=== PATIENT | female | born 1960 | race Caucasian/White ===

== ENCOUNTER 2018-11-01 11:37 | Emergency (ER) | payer OTHER ==
--- NOTE | 2018-11-01 13:54 | ED ---
Back Pain - HPI Summary HPI Summary: Patient presents with recurrent back injury with radicular symptoms into Rt LE 2 weeks. She reports she initially injured her back 2 ago while taking out a heavy recycling bin - pulled this with her back. She did not have any acute pain but later that evening she felt pain in her right lower back that radiated into her buttock, behind her leg and around into her foot along w / decreased sensation in her Rt anterior angel. This lasted for about 2-3 daysbut resolved w/ rest, heat and took ibuprofen 200 mg per dose. She reports she reinjured the same area this past (5 days ago) while twisting and lifting. Same sx and actually a little less painful this time. Has been implementing same remedies w/o resolution so was concerned. Also admits she had pain last night making it difficult to sleep. No previous back issues or injuries. She denies previous abdominal surgeries. She does admit to a history of breast cancer 15 years ago which was treated and resolved. She is concerned that this could be contributing to her issues today. Also admits her within the past year and has had change in her insurance. She still has coverage but would like guidance pertaining to medications moving forward. - History of Current Complaint Chief Complaint: EDBackInjuryPain Stated Complaint: PAIN IN BACK, NUMBNESS IN RIGHT LEG Time Seen by Provider: 11/01/18 12:44 Hx Obtained From: Patient Pain Intensity: 6 - Allergies/Home Medications Allergies/Adverse Reactions: Allergies Allergy/AdvReac Type Severity Reaction Status Date / Time No Known Allergies Allergy Verified 03/19/16 08:09 PMH/Surg Hx/FS Hx/Imm Hx Previously Healthy: Yes Endocrine/Hematology History: Denies: Hx Diabetes, Hx Thyroid Disease Cardiovascular History: Reports: Hx Hypertension - controlled on 2 meds Respiratory History: Denies: Hx Asthma, Hx Chronic Obstructive Pulmonary Disease (COPD) GI History: Denies: Hx Ulcer Musculoskeletal History: Reports: Hx Osteoporosis, Hx of Fracture(s) - Rt proximal fibula w/ surgical repair Denies: Hx Back Problems - Cancer History Cancer Type, Location and Year: Breast Cancer in 2002 - in remission Hx Chemotherapy: Yes - BREAST Hx Radiation Therapy: Yes - BREAST - Surgical History Surgery Procedure, Year, and Place: BREAST CANCER Infectious Disease History: No Infectious Disease History: Denies: Hx Hepatitis, Hx Human Immunodeficiency Virus (HIV), Traveled Outside the [place] in Last 30 Days - Social History Alcohol Use: Rare Alcohol Amount: 1 Substance Use Type: Reports: None Smoking Status (MU): Never Smoked Tobacco Have You Smoked in the Last Year: No Review of Systems Constitutional: Other - negative night sweats/weight loss Positive: Chills. Negative: Fever, Fatigue Negative: Chest Pain Negative: Shortness Of Breath Negative: Vomiting, Nausea Genitourinary: Negative Negative: incontinence Positive: Arthralgia, Myalgia Skin: Negative Positive: Paresthesia. Negative: Headache, Weakness, Numbness, Syncope, Slurred Speech Psychological: Normal All Other Systems Reviewed And Are Negative: Yes Physical Exam Triage Information Reviewed: Yes Vital Signs On Initial Exam: Initial Vitals Temp Pulse Resp BP Pulse Ox 97.8 F 91 18 150/82 98 11/01/18 11:51 11/01/18 11:51 11/01/18 11:51 11/01/18 11:51 11/01/18 11:51 Vital Signs Reviewed: Yes Appearance: Positive: Well-Appearing, No Pain Distress, Well-Nourished Skin: Positive: Warm, Skin Color Reflects Adequate Perfusion, Dry Head/Face: Positive: Normal Head/Face Inspection Eyes: Positive: EOMI ENT: Positive: Hearing grossly normal Respiratory/Lung Sounds: Positive: Breath Sounds Present Cardiovascular: Positive: Pulses are Symmetrical in both Upper and Lower Extremities. Negative: Leg Edema Left, Leg Edema Right Musculoskeletal: Positive: Limited @ - Rt dorsiflexion, Pain @ - feels this internally along lower lumbar spine - not reproducible w/ palpation, Other - cannot palpate pain along lumbar spinous pp, paraspinal mm nor SI joint Neurological: Positive: Alert, Oriented to Person Place, Time, CN Intact II- III. Negative: Sensory/Motor Intact - sensory equal B/L in LE's; Rt dorsiflexion 3/5 compared to Rt 5/5 Psychiatric: Positive: Normal Diagnostics - Vital Signs Vital Signs Temp Pulse Resp BP Pulse Ox 11/01/18 11:51 97.8 F 91 18 150/82 98 - Laboratory Lab Statement: Any lab studies that have been ordered have been reviewed, and results considered in the medical decision making process. Back Pain Course/Dx - Course Course Of Treatment: Discussed case w/ Dr. Khan - since patient has some strength w/ dorsiflexion and has had sx for 4 days now, will trial PO meds and have pt have close f/u for MRI. Neurosurgery was not consulted today however pt given f/u care instructions and advised on danger s/sx of when to return to ED. She agrees w/ plan. XR: arthritis, no fx, no dislocation - Diagnoses Provider Diagnoses: Lumbar radiculopathy, right Discharge - Sign-Out/Discharge Documenting (check all that apply): Patient Departure - Discharge Plan Condition: Stable Disposition: HOME Prescriptions: Ibuprofen TAB* [Motrin TAB* 600 MG] 600 mg PO Q6H PRN #20 tab PRN Reason: Pain predniSONE TAB* [Deltasone 20 MG TAB*] 60 mg PO DAILY #15 tab Patient Education Materials: Foot Drop (ED), Lumbar Radiculopathy (ED), Degenerative Disc Disease (ED) Referrals: Myah Lemos MD [Primary Care Provider] - [facility] [Outside] Additional Instructions: Rest, heat in the morning with gentle stretches alternating with ice Take medications as directed *Ibuprofen (ie. 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 If unable to get an appointment, you may follow-up with [facility], in the hospital on the 3rd floor. Call Thursday morning for an appointment. If MRI shows results requiring surgical intervention, a neurosurgery referral may be made. *If worse in the meantime, return to ED - Billing Disposition and Condition Condition: STABLE Disposition: Home
[2018-11-01] MEDS ORDERED: predniSONE TAB* 20 MG PO ONE (13:58)
[2018-11-01] MEDS ORDERED: Ibuprofen TAB* 800 MG PO ONE (13:58)
[2018-11-01] MEDS ORDERED: Omeprazole CAP* 20 MG PO ONE (13:59)
[2018-11-01 15:31] VITALS: BP 158/75
== END 2018-11-01 15:29 | disposition home or self-care (01) ==
LOC: ED 11:37
DX: M54.16 Radiculopathy, lumbar region (principal); M16.11 Unilateral primary osteoarthritis, right hip; I10 Essential (primary) hypertension; Z85.3 Personal history of malignant neoplasm of breast
CPT/HCPCS: 72100; 99282; A9270-GY; J7512

== ENCOUNTER 2019-05-03 19:49 | Emergency (ER) | payer OTHER ==
--- OUTSIDE RECORDS SUMMARY | 2019-05-03 19:55 | XMS REPORT | Continuity of Care Document ---
:1960 External Reference #:[id number] Author Name Myah Lemos MD Address [address] [place] [address] Care Team Providers Name Role Phone Myah Lemos MD FACP Primary Care Physician Unavailable Payers Date Identification Numbers Payment Provider Subscriber Expires: Policy Number: [id number] Edilberto Ross Douglas Sixto 2017 PayID: [id number] [address] [place] [address] Effective: 2017 Policy Number: CPHL [employer] Calvin Brent Sixto [id number] PayID: [id number] [address] [place] [address] Problems Active Problems Provider Date Aortic valve disorder Myah Lemos MD Onset: 09/06/2015 Non-neoplastic nevus Myah Lemos MD Onset: 05/24/2014 Pure hypercholesterolemia Myah Lemos MD Onset: 08/12/2012 Vitamin D deficiency Myah Lemos MD Onset: 08/28/2009 Obesity Myah Lemos MD Onset: 08/01/2009 Impaired fasting glycaemia Myah Lemos MD Onset: 08/01/2009 Essential hypertension Myah Lemos MD Onset: 08/01/2009 Osteoporosis Myha Lemos MD Onset: 04/30/2009 Family History Date Family Member(s) Observation Comments General Migraine Aunts and cousins in [place] : (age 62 Father due to Stroke Years) Onset: (age 61 Father Lung Cancer Years) Father Hypertension Onset: (age 25 Mother Lung Abcess s/p surgery Years) : (age 53 Mother due to Stroke Years) Mother Hypothyroidism Mother Hypertension Mother Heart Disease Not sure of detail Social History Type Date Description Comments Sex Unknown Marital Status 06/2018 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 [place] Tobacco Use Start: Unknown Never Smoked Cigarettes ETOH Use Drinks Alcoholic "Little" Beverages Occasionally Recreational Drug Use Never Used Drugs Tobacco Use Start: Unknown Patient has never smoked Exercise Type/Frequency Does not exercise Allergies, Adverse Reactions, Alerts Description No Known Drug Allergies Medications Active Medications SIG Qnty Indications Ordering Provider Date Losartan Potassium take 1 tablet by 90tabs I10 [place] A 09/06/2015 50mg mouth daily for MD Aminta Tablets high blood pressure Vitamin D3 2 by mouth every E55.9 [place] A 03/07/2015 2000Unit day MD Aminta Capsules M81.0 Amlodipine Besylate take 1 tablet by 90tabs I10 Glasgow A Aminta, 2011 5mg mouth daily for high MD Tablets blood pressure Glucosamine Chondroitin 1PO qd Unknown 09/09/2010 MSM Complex 1500 Tablets History Medications Cephalexin Take 1 tablet 14tabs 461.0 Glasgow A 02/11/2013 - 500mg Tablets by mouth every MD Aminta 02/18/2013 6 hours for infection Calcium Citrate 1 by mouth 733.00 Glasgow A 10/18/2012 - Plus/Magnesium twice a day MD Aminta 05/18/2013 Tablets Losartan 1 by mouth 30tabs 401.9 Glasgow A 06/21/2012 - Potassium/Hydrochlorothiaz every day MD Aminta 08/12/2012 martinez 50-12.5mg Tablets Alendronate Sodium Take 1 Tablet 12tabs 733.00 Glasgow A 05/27/2012 - 70mg Tablets Every Week MD Aminta 06/08/2014 Before A Meal as Directed Losartan 1 by mouth 90tabs 401.9 Glasgow A 02/25/2012 - Potassium/Hydrochlorothiaz every day MD Aminta 06/19/2012 martinez 100-25mg Tablets Azithromycin 2 on first day 6tabs 382.9 Glasgow A 01/01/2012 - 250mg Tablets than 1 daily MD Aminta 01/06/2012 for 4 days Hydrochlorothiazide 1 po qd 30tabs 401.9 Glasgow A 12/08/2011 - 25mg Tablets MD Aminta 02/25/2012 Losartan Potassium 1 po qd 30tabs 401.9 Glasgow A 12/08/2011 - 100mg Tablets MD Aminta 02/25/2012 Losartan 1 by mouth 30tabs 401.9 Glasgow A 05/26/2011 - Potassium/Hydrochlorothiaz every day MD Aminta 12/08/2011 martinez 50-12.5mg Tablets Amlodipine Besylate 1 by mouth 90tabs 401.9 Glasgow A 10/24/2010 - 5mg Tablets every day MD Aminta 06/07/2012 Losartan 1 po qd 90tabs 401.9 Glasgow Bartolo 10/24/2010 - Potassium/Hydrochlorothiaz MD Aminta 05/26/2011 martinez 100-25mg Tablets Vitamin D3 1 po qd 268.9 Glasgow Bartolo 08/28/2009 - 2000Unit Capsules MD Aminta 03/07/2015 733.00 Hyzaar 1 po qd 90tabs 401.9 Glasgoweaston Lemos 08/28/2009 - 100-25mg Tablets 10/24/2010 Lisinopril/Hydrochloro 1 po qd 30tabs 401.9 Glasgoweaston Lemos 08/01/2009 - thiazide 08/28/2009 20-25mg Tablets Actonel 1 po qweek 4tabs 733.00 Myah Lemos 05/14/2009 - 35mg Tablets 06/18/2009 Amoxicillin 1 po tid 30caps 463 Myah Lemos 04/30/2009 - 500mg 08/01/2009 Capsules Vitamin D 1 po qd 268.9 Glasgoweaston Lemos 04/30/2009 - 1000Unit 08/28/2009 Capsules 733.00 Franklin-3-6-9 2 by mouth every day Unknown 11/09/2007 - 08/11/2012 1200mg Capsules Immunizations CPT Code Status Date Vaccine Lot # [id number] Given 08/28/2009 Tdap-Tetanus, Diphtheria Toxoids/Acellular TDAP [id number] Pertussis Vaccine 7+ [id number] Refused 09/10/2016 Influenza Virus Split 3 Yrs And Above For Intramuscular Use 19915 Refused 09/06/2015 Influenza Virus Split 3 Yrs And Above For Intramuscular Use [id number] Refused 07/08/2013 Influenza Virus Split 3 Yrs And Above For Intramuscular Use 92089 Refused 08/12/2012 Influenza Virus Split 3 Yrs And Above For Intramuscular Use 83729 Refused 12/08/2011 Influenza Virus Split 3 Yrs And Above For Intramuscular Use 73160 Refused 10/24/2010 Influenza Virus Split 3 Yrs And Above For Intramuscular Use Vital Signs Date Vital Result Comment 03/24/2019 3:45pm Heart Rate 70 /min BP Systolic 140 mmHg BP Diastolic 80 mmHg Weight 210.00 lb 12/02/2017 1:59pm Heart Rate 76 /min BP Systolic 135 mmHg BP Diastolic 80 mmHg BMI (Body Mass Index) 37.8 kg/m2 Weight 215.00 lb Height 63.25 inches 5'3.25" 09/10/2016 2:09pm O2 % BldC Oximetry 96 % Heart Rate 78 /min BP Systolic 130 mmHg BP Diastolic 75 mmHg BMI (Body Mass Index) 37.6 kg/m2 Weight 214.00 lb Height 63.25 inches 5'3.25" 10/08/2015 2:08pm Heart Rate 80 /min BP Systolic 150 mmHg BP Diastolic 85 mmHg 09/12/2015 6:31pm Ejection Fraction 60-70% ECHO 09/06/2015 2:35pm Heart Rate 76 /min BP Systolic 150 mmHg BP Diastolic 80 mmHg BMI (Body Mass Index) 35.4 kg/m2 Weight 200.00 lb Height 63 inches 5'3" 03/07/2015 3:09pm Heart Rate 70 /min BP Systolic 150 mmHg BP Diastolic 80 mmHg BP Systolic Recheck 140 mmHg BP Diastolic Recheck 80 mmHg Weight 208.00 lb 05/24/2014 1:09pm Body Temperature 98.2 F O2 % BldC Oximetry 96 % Heart Rate 96 /min BP Systolic 160 mmHg BP Diastolic 90 mmHg BP Systolic Recheck 138 mmHg BP Diastolic Recheck 85 mmHg BMI (Body Mass Index) 32.3 kg/m2 Weight 188.00 lb in office, clothed Height 64 inches 5'4" 11/21/2013 2:28pm Body Temperature 98.2 F O2 % BldC Oximetry 99 % Ra, AT Rest Heart Rate 86 /min BP Systolic 132 mmHg BP Diastolic 80 mmHg BMI (Body Mass Index) 33.5 kg/m2 Weight 195.00 lb Height 64 inches 5'4" 07/08/2013 10:42am Body Temperature 98.5 F Heart Rate 70 /min BP Systolic 135 mmHg BP Diastolic 80 mmHg Height 64 inches 5'4" 05/19/2013 1:18pm Heart Rate 80 /min BP Systolic 140 mmHg BP Diastolic 80 mmHg BMI (Body Mass Index) 34.0 kg/m2 Weight 198.00 lb Height 64 inches 5'4" 02/11/2013 12:50pm Body Temperature 98.1 F Heart Rate 76 /min BP Systolic 130 mmHg BP Diastolic 80 mmHg Height 64 inches 5'4" 10/18/2012 2:04pm Heart Rate 72 /min BP Systolic 135 mmHg BP Diastolic 75 mmHg BMI (Body Mass Index) 34.0 kg/m2 Weight 198.00 lb with shoes Height 64 inches 5'4" 09/13/2012 2:25pm Heart Rate 78 /min BP Systolic 138 mmHg BP Diastolic 80 mmHg 08/12/2012 1:16pm Heart Rate 64 /min BP Systolic 140 mmHg BP Diastolic 85 mmHg BMI (Body Mass Index) 33.8 kg/m2 Weight 197.00 lb with shoes Height 64 inches 5'4" 06/21/2012 2:02pm Heart Rate 76 /min BP Systolic 155 mmHg BP Diastolic 90 mmHg BMI (Body Mass Index) 34.2 kg/m2 Weight 199.00 lb Height 64 inches 5'4" 01/01/2012 2:12pm Body Temperature 98.8 F Heart Rate 70 /min BP Systolic 145 mmHg BP Diastolic 85 mmHg 12/08/2011 3:09pm Heart Rate 70 /min BP Systolic 165 mmHg BP Diastolic 85 mmHg BMI (Body Mass Index) 34.3 kg/m2 Weight 200.00 lb Height 64 inches 5'4" 05/26/2011 11:23am Heart Rate 66 /min BP Systolic 138 mmHg BP Diastolic 75 mmHg BMI (Body Mass Index) 33.6 kg/m2 Weight 196.00 lb Height 64 inches 5'4" 01/23/2011 11:07am Heart Rate 74 /min BP Systolic 140 mmHg BP Diastolic 75 mmHg BMI (Body Mass Index) 34.2 kg/m2 Weight 199.00 lb Height 64 inches 5'4" 10/24/2010 11:17am Heart Rate 80 /min BP Systolic 150 mmHg BP Diastolic 85 mmHg BMI (Body Mass Index) 33.3 kg/m2 Weight 194.00 lb Height 64 inches 5'4" 10/17/2010 2:31pm Ejection Fraction 60% ECHO 08/22/2010 1:22pm Heart Rate 72 /min BP Systolic 165 mmHg BP Diastolic 90 mmHg BMI (Body Mass Index) 33.5 kg/m2 Weight 195.00 lb Height 64 inches 5'4" 04/16/2010 1:05pm Heart Rate 74 /min BP Systolic 160 mmHg BP Diastolic 90 mmHg BMI (Body Mass Index) 34.0 kg/m2 Weight 198.00 lb Height 64 inches 5'4" 12/17/2009 2:03pm Heart Rate 64 /min BP Systolic 145 mmHg BP Diastolic 90 mmHg BP Systolic Recheck 148 mmHg BP Diastolic Recheck 90 mmHg BMI (Body Mass Index) 34.7 kg/m2 Weight 202.00 lb Height 64 inches 5'4" 11/05/2009 10:36am Body Temperature 98.4 F Height 64 inches 5'4" 10/22/2009 2:31pm Ejection Fraction 60% ECHO 10/15/2009 1:54pm Heart Rate 72 /min BP Systolic 145 mmHg BP Diastolic 85 mmHg 08/28/2009 11:11am Heart Rate 80 /min BP Systolic 155 mmHg BP Diastolic 85 mmHg BMI (Body Mass Index) 32.8 kg/m2 Weight 191.00 lb Height 64 inches 5'4" 08/01/2009 11:34am Heart Rate 80 /min BP Systolic 175 mmHg BP Diastolic 90 mmHg BMI (Body Mass Index) 33.5 kg/m2 Weight 195.00 lb Height 64 inches 5'4" 04/30/2009 1:03pm Body Temperature 98.7 F Heart Rate 80 /min BP Systolic 170 mmHg BP Diastolic 85 mmHg Height 64 inches 5'4" 04/05/2009 4:07pm Body Temperature 98.0 F O2 % BldC Oximetry 99 % Heart Rate 80 /min BP Systolic 165 mmHg BP Diastolic 90 mmHg BMI (Body Mass Index) 33.5 kg/m2 Weight 195.00 lb Height 64 inches 5'4" Results Test Date Facility Test Result H/L Range Note Laboratory test 02/08/2019 [facility] Cytology SEE RESULT 1 [place] [address] BELOW [phone] Xray 08/24/2018 [facility] Mammography, Normal [address] Screening, [place] [address] Bilateral [phone] CBC No Diff 09/24/2017 [facility] White Blood 8.1 10^3/uL N 3.5-10.8 [place] [address] Count [phone] Red Blood Count 4.72 10^6/uL N 4.0-5.4 Hemoglobin 13.1 g/dL N 12.0-16.0 Hematocrit 39 % N 35-47 Mean Corpuscular Volume 84 fL N 80-97 Mean Corpuscular Hemoglobin 28 pg N 27-31 Mean Corpuscular HGB Conc 33 g/dL N 31-36 Red Cell Distribution Width 13 % N 10.5-15 Platelet Count 272 10^3/uL N 150-450 Mean Platelet Volume 9 um3 N 7.4-10.4 Comp Metabolic Panel 09/24/2017 [facility] Sodium 136 mmol/L N 133-145 [place] [address] [phone] Potassium 3.8 mmol/L N 3.5-5.0 Chloride 101 mmol/L N 101-111 Co2 Carbon Dioxide 27 mmol/L N 22-32 Anion Gap 8 mmol/L N 2-11 Glucose 105 mg/dL High 70-100 Blood Urea Nitrogen 17 mg/dL N 6-24 Creatinine 0.68 mg/dL N 0.51-0.95 BUN/Creatinine Ratio 25.0 High 8-20 Calcium 10.2 mg/dL N 8.6-10.3 Total Protein 7.5 g/dL N 6.4-8.9 Albumin 4.8 g/dL N 3.2-5.2 Globulin 2.7 g/dL N 2-4 Albumin/Globulin Ratio 1.8 N 1-3 Total Bilirubin 0.60 mg/dL N 0.2-1.0 Alkaline Phosphatase 99 U/L N 34-104 Alt 19 U/L N 7-52 Ast 17 U/L N 13-39 Egfr Non- 89.2 >60 Egfr 114.7 >60 2 Lipid Profile 09/24/2017 [facility] Triglycerides 190 mg/dL High <150 3 (Trig/Chol/HDL) [place], [place] [id number] [phone] Cholesterol 232 mg/dL High <200 4 HDL Cholesterol 44.9 mg/dL >40 5 LDL Cholesterol 149 mg/dL High <130 6 Laboratory test 09/24/2017 [facility] Hemoglobin A1c 5.4 % N 4.0-5.6 7 [place] [address] (Glyco HGB) [phone] Vitamin D Total 25(Oh) 31.3 ng/mL N 20-50 8 Xray 05/27/2017 [facility] Mammography, Normal [address] Diagnostic, [place] [address] Bilateral [phone] Urine Microalbumin 11/07/2016 [facility] Urine Creatinine 107.13 mg/[place] [address] [phone] Ur Microalbumin (mg/L) < 15.0 mg/L N Urine Microalbumin/Creatinine TNP ug/mg N <31 9 Lipid Profile 11/06/2016 [facility] Triglycerides 214 mg/dL High <150 10 (Trig/Chol/HDL) [place] [address] [phone] Cholesterol 219 mg/dL High <200 11 HDL Cholesterol 45.3 mg/dL N >40 12 LDL Cholesterol 131 mg/dL High <130 13 Laboratory test 11/06/2016 [facility] Hemoglobin A1c 5.6 % N Less than 14 [place] [address] (Glyco HGB) 6.0 [phone] Comp Metabolic 11/06/2016 [facility] Sodium 136 N 133-145 [place] [address] mmol/L [phone] Potassium 4.4 mmol/L N 3.5-5.0 Chloride 102 mmol/L N 101-111 Co2 Carbon Dioxide 25 mmol/L N 22-32 Anion Gap 9 mmol/L N 2-11 Glucose 103 mg/dL High 70-100 Blood Urea Nitrogen 14 mg/dL N 6-24 Creatinine 0.75 mg/dL N 0.51-0.95 BUN/Creatinine Ratio 18.7 N 8-20 Calcium 9.9 mg/dL N 8.6-10.3 Total Protein 7.7 g/dL N 6.4-8.9 Albumin 4.6 g/dL N 3.2-5.2 Globulin 3.1 g/dL N 2-4 Albumin/Globulin Ratio 1.5 N 1-3 Total Bilirubin 0.50 mg/dL N 0.2-1.0 Alkaline Phosphatase 95 U/L N 34-104 Alt 22 U/L N 7-52 Ast 18 U/L N 13-39 Egfr Non- 79.9 N >60 Egfr 102.8 N >60 15 CBC No Diff 11/06/2016 [facility] White Blood 8.2 10^3/uL N 3.5-10.8 [place] [address] Count [phone] Red Blood Count 5.00 10^6/uL N 4.0-5.4 Hemoglobin 13.9 g/dL N 12.0-16.0 Hematocrit 42 % N 35-47 Mean Corpuscular Volume 84 fL N 80-97 Mean Corpuscular Hemoglobin 28 pg N 27-31 Mean Corpuscular HGB Conc 33 g/dL N 31-36 Red Cell Distribution Width 13 % N 10.5-15 Platelet Count 243 10^3/uL N 150-450 Mean Platelet Volume 9 um3 N 7.4-10.4 Xray 10/14/2016 [facility] Dexa Scan, Axial Osteopenia KARISHMA TOMLINSON (e.g. hips, [place] [address] pelvis, spine) [phone] Laboratory 03/19/2016 [facility] Surgical Pathology SEE RESULT 16, [place] [address] BELOW 17 [phone] Xray 03/19/2016 [facility] Stero/Local/Guid Benign [address] [address] [phone] Xray 03/17/2016 [facility] Mammography, Rtbreast KARISHMA TOMLINSON Screening, [place] [address] Bilateral [phone] Order 09/13/2015 [facility] Echocardiogram Mild LVH PHTN [address], [address] FLO[address] Ef 65% [place] [address] [phone] Urinalysis 08/28/2015 [facility] Urine Color Straw N 18 [place] [address] [phone] Urine Appearance Clear N Urine Specific [place] 1.010 N 1.010-1.030 Urine pH 6.0 N 5-9 Urine Urobilinogen Negative N Negative Urine Ketones Negative N Negative Urine Protein Negative N Negative Urine Leukocytes Negative N Negative Urine Blood Negative N Negative Urine Nitrite Negative N Negative Urine Bilirubin Negative N Negative Urine Glucose Negative N Negative Laboratory 08/28/2015 [facility] Hepatitis C Nonreactive N Nonreactive 19 [place] [address] Antibody [phone] Lipid Profile 08/28/2015 [facility] Triglycerides 152 mg/dL N 20 (Trig/Chol/[place] [address] L) [phone] Cholesterol 214 mg/dL N 21 HDL Cholesterol 47.1 mg/dL N 22 LDL Cholesterol 137 mg/dL N 23 Laboratory test 08/28/2015 [facility] Hemoglobin A1c 5.8 % N Less than 24 [place] [address] (Glyco HGB) 6.0 [phone] Vitamin D Total 25(Oh) 48.6 ng/mL N 30-50 25 Comp Metabolic Panel 08/28/2015 [facility] Sodium 132 mmol/L Low 133-145 [place] [address] [phone] Potassium 4.2 mmol/L N 3.5-5.0 Chloride 99 mmol/L Low 101-111 Co2 Carbon Dioxide 25 mmol/L N 22-32 Anion Gap 8 mmol/L N 2-11 Glucose 98 mg/dL N 70-100 Blood Urea Nitrogen 16 mg/dL N 6-24 Creatinine 0.75 mg/dL N 0.51-0.95 BUN/Creatinine Ratio 21.3 High 8-20 Calcium 9.9 mg/dL N 8.6-10.3 Total Protein 7.4 g/dL N 6.4-8.9 Albumin 4.5 g/dL N 3.2-5.2 Globulin 2.9 g/dL N 2-4 Albumin/Globulin Ratio 1.6 N 1-3 Total Bilirubin 0.40 mg/dL N 0.2-1.0 Alkaline Phosphatase 92 U/L N 34-104 Alt 19 U/L N 7-52 Ast 17 U/L N 13-39 Egfr Non- 80.2 N >60 Egfr 103.2 N >60 26 CBC No Diff 08/28/2015 [facility] White Blood 8.2 10^3/uL N 4.8-10.8 [place] [address] Count [phone] Red Blood Count 4.67 10^6/uL N 4.0-5.4 Hemoglobin 13.3 g/dL N 12.0-16.0 Hematocrit 40 % N 35-47 Mean Corpuscular Volume 85 fL N 80-97 Mean Corpuscular Hemoglobin 28 pg N 27-31 Mean Corpuscular HGB Conc 33 g/dL N 31-36 Red Cell Distribution Width 13 % N 10.5-15 Platelet Count 258 10^3/uL N 150-450 Mean Platelet Volume 9 um3 N 7.4-10.4 Xray 03/12/2015 [facility] Mammography, Normal [address] Screening, Bilateral [place], [place] [address] [phone] Vitamin D, 25 02/20/2015 [facility] 25-Hydroxy Vitamin <4.0 ng/ [place] [address] D2 [phone] 25-Hydroxy Vitamin D3 27 ng/mL N 25-Hydroxy Vitamin D Total 27 ng/mL N 27 Laboratory test 02/20/2015 [facility] Hemoglobin A1c 6.0 % N Less than 28 [place] [address] 6.0 [phone] Basic Metabolic 02/20/2015 [facility] Sodium 134 N 133-145 [place] [address] mmol/L [phone] Potassium 3.9 mmol/L N 3.5-5.0 Chloride 103 mmol/L N 101-111 Co2 Carbon Dioxide 25 mmol/L N 22-32 Anion Gap 6 mmol/L N 2-11 Glucose 97 mg/dL N 70-100 Blood Urea Nitrogen 15 mg/dL N 6-24 Creatinine 0.68 mg/dL N 0.51-0.95 BUN/Creatinine Ratio 22.1 High 8-20 Calcium 9.7 mg/dL N 8.6-10.3 Egfr Non- 90.2 N >60 Egfr 116.0 N >60 29 Laboratory test 05/31/2014 [facility] Surgical RUN DATE: 30 [place] [address] Pathology 06/02/ <SEE [phone] NOTE> Xray 05/30/2014 [facility] Dexa Scan, Axial Improved OP KARISHMA TOMLINSON (e.g. hips, [place] [address] pelvis, spine) [phone] Urine 05/22/2014 [facility] Ur Microalbumin 15.0 mg/dL <30 31 [place] [address] (mg/L) Random [phone] Urine Creatinine 259.05 mg/dL Urine Microalbumin/Creatinine 5.7 Less Than 31 Laboratory test 05/19/2014 [facility] Hemoglobin A1c 5.6 % Less than 32 [place] [address] 6.0 [phone] Lipid Profile 05/19/2014 [facility] Triglycerides 187 mg/dL 33 (Trig/Chol/HDL) [place] [address] [phone] Cholesterol 225 mg/dL 34 HDL Cholesterol 45.8 mg/dL 35 LDL Cholesterol 142 mg/dL 36 Comp Metabolic Panel 05/19/2014 [facility] Sodium 136 mmol/L 133-145 [place] [address] [phone] Potassium 4.2 mmol/L 3.7-5.6 Chloride 103 mmol/L 101-111 Co2 Carbon Dioxide 27 mmol/L 22-32 Anion Gap 6 mmol/L 2-11 Glucose 92 mg/dL 70-100 Blood Urea Nitrogen 15 mg/dL 6-24 Creatinine 0.75 mg/dL 0.51-0.95 BUN/Creatinine Ratio 20.0 8-20 Calcium 9.5 mg/dL 8.6-10.3 Total Protein 7.2 g/dL 6.4-8.9 Albumin 4.6 g/dL 3.2-5.2 Globulin 2.6 g/dL 2-4 Albumin/Globulin Ratio 1.8 1-3 Total Bilirubin 0.40 mg/dL 0.2-1.0 Alkaline Phosphatase 71 U/L 34-104 Alt 17 U/L 7-52 Ast 17 U/L 13-39 Egfr Non- 80.5 >60 Egfr 103.6 >60 37 CBC No Diff 05/19/2014 [facility] White Blood 7.4 10^3/uL 4.8 -10.8 [place] [address] Count [phone] Red Blood Count 4.64 10^6/uL 4.0-5.4 Hemoglobin 13.5 g/dL 12.0-16.0 Hematocrit 39 % 35-47 Mean Corpuscular Volume 84 fL 80-97 Mean Corpuscular Hemoglobin 29 pg 27-31 Mean Corpuscular HGB Conc 35 g/dL 31-36 Red Cell Distribution Width 13 % 10.5-15 Platelet Count 261 10^3/uL 150-450 Mean Platelet Volume 9 um3 7.4-10.4 Xray 12/16/2013 [facility] Mammography, Normal [address] Screening, [place] [address] [phone] Vitamin D, 25 11/14/2013 [facility] 25-Hydroxy Vitamin <4.0 ng/ [place] [address] D2 [phone] 25-Hydroxy Vitamin D3 38 ng/mL 25-Hydroxy Vitamin D Total 38 ng/mL 38 Laboratory test 11/14/2013 [facility] Hemoglobin A1c 5.5 % Less than 39 [place] [address] 6.0 [phone] Basic Metabolic 11/14/2013 [facility] Sodium 136 133-145 [place] [address] mmol/L [phone] Potassium 4.1 mmol/L 3.5-5.0 Chloride 101 mmol/L 101-111 Co2 Carbon Dioxide 26.0 mmol/L 22-32 Anion Gap 9.0 mmol/L 2-11 Glucose 96 mg/dL 70-100 Blood Urea Nitrogen 17 mg/dL 6-24 Creatinine 0.80 mg/dL 0.50-1.40 BUN/Creatinine Ratio 21.3 High 8-20 Calcium 9.8 mg/dL 8.1-9.9 Egfr Non- 75.0 >60 Egfr 96.5 >60 40 Urine Microalbumin 05/18/2013 [facility] Ur Microalbumin 3.0 mg/ L 41 [place] [address] (mg/L) [phone] Urine Creatinine 75.3 mg/dL Urine Microalbumin/Creatinine 4.0 Less Than 31 Vitamin D, 25 05/11/2013 [facility] 25-Hydroxy Vitamin <4.0 ng/ [place] [address] D2 [phone] 25-Hydroxy Vitamin D3 34 ng/mL 25-Hydroxy Vitamin D Total 34 ng/mL 25-80 42 Lipid Profile 05/11/2013 [facility] Triglycerides 128 mg/dL 40-200 (Trig/Chol/HDL) [place] [address] [phone] Cholesterol 222 mg/dL High Less than 200 HDL Cholesterol 48 mg/dL 40-60 43 Cholesterol/HDL Ratio 4.6 Average High 1-4.44 LDL Cholesterol 148.4 Less Than 160 44 Laboratory test 05/11/2013 [facility] Hemoglobin A1c 5.5 % Less than 45 [place] [address] 6.0 [phone] Comp Metabolic 05/11/2013 [facility] Sodium 138 133-145 [place] [address] mmol/L [phone] Potassium 4.0 mmol/L 3.5-5.0 Chloride 104 mmol/L 101-111 Co2 Carbon Dioxide 27.0 mmol/L 22-32 Anion Gap 7.0 mmol/L 2-11 Glucose 93 mg/dL 70-100 Blood Urea Nitrogen 9 mg/dL 6-24 Creatinine 0.60 mg/dL 0.50-1.40 BUN/Creatinine Ratio 15.0 8-20 Calcium 10.0 mg/dL High 8.1-9.9 Total Protein 7.2 g/dL 6.2-8.1 Albumin 4.4 g/dL 3.6-5.4 Globulin 2.8 g/dL 2-4 Albumin/Globulin Ratio 1.6 1-3 Total Bilirubin 0.6 mg/dL 0.4-1.5 Alkaline Phosphatase 79 U/L 30-110 Alt 19 U/L 14-54 Ast 21 U/L 12-42 Egfr Non- 104.6 >60 Egfr 134.5 >60 46 CBC No Diff 05/11/2013 [facility] White Blood 6.7 10^3/uL 4.8 -10.8 [place] [address] Count [phone] Red Blood Count 4.71 10^6/uL 4.0-5.4 Hemoglobin 13.3 g/dL 12.0-16.0 Hematocrit 40 % 35-47 Mean Corpuscular Volume 84 fL 80-97 Mean Corpuscular Hemoglobin 28 pg 27-31 Mean Corpuscular HGB Conc 33 g/dL 31-36 Red Cell Distribution Width 13 % 10.5-15 Platelet Count 254 10^3/uL 150-450 Mean Platelet Volume 9 um3 7.4-10.4 Xray 12/15/2012 [facility] Mammography, Benign [address] Screening, [place] [address] Bilateral [phone] Basic Metabolic 10/13/2012 [facility] Sodium 138 mmol/L 133- 14 [place] [address] 5 [phone] Potassium 4.1 mmol/L 3.5-5.0 Chloride 106 mmol/L 101-111 Co2 Carbon Dioxide 26.0 mmol/L 22-32 Anion Gap 6.0 mmol/L 2-11 Glucose 96 mg/dL 70-100 Blood Urea Nitrogen 12 mg/dL 6-24 Creatinine 0.60 mg/dL 0.50-1.40 BUN/Creatinine Ratio 20.0 8-20 Calcium 9.8 mg/dL 8.1-9.9 Egfr Non- 105.0 >60 Egfr 135.0 >60 47 Laboratory 10/13/2012 [facility] TSH (Thyroid 2.14 0.34-5.60 48 [place] [address] Stimulating Horm) MIU/ML [phone] Lipid Profile 10/13/2012 [facility] Triglycerides 115 mg/dL 40-200 (Trig/Chol/[place] [address] ) [phone] Cholesterol 217 mg/dL High Less than 200 HDL Cholesterol 49 mg/dL 40-60 49 Cholesterol/HDL Ratio 4.4 Average 1-4.44 LDL Cholesterol 145.0 mg/dL High Less Than 130 50 CBC No Diff 07/01/2012 [facility] White Blood Count 6.6 CUMM 4.8-10.8 [place] [address] [phone] Red Cell Count 4.40 CUMM 4.2-5.4 Hemoglobin 12.9 g/dL 12.0-16.0 Hematocrit 38 % 35-47 Mean Corpuscular Volume 85 um3 79-97 Mean Corpuscular Hemoglob 29 pg 27-31 Mean Corpuscular HGB Cone 34 g/dL 32-36 Redcell Distribution WDTH 13 % 10.5-15 Platelet Count 229 CUMM 150-450 Mean Platelet Volume 9.3 um3 7.4-10.4 Basic Metabolic Panel 07/01/2012 [facility] Sodium 136 mmol/L 135-145 [place] [address] [phone] Potassium 3.9 mmol/L 3.5-5.0 Chloride 101 mmol/L 101-111 Co2 (Carbon Dioxide) 27.0 mmol/L 22-32 Anion Gap 8.0 mmol/L 2-11 51 Glucose 98 mg/dL 70-100 BUN 13 mg/dL 6-24 Creatinine 0.8 mg/dL 0.50-1.40 One Over Creatinine 1.25 BUN/Creatinine Ratio 16.3 8-20 Calcium 10.1 mg/dL High 8.1-9.9 eGFR Non- 75.3 > 60 eGFR 96.9 > 60 52 Lipid Profile 07/01/2012 [facility] Triglyceride 159 mg/dL 40 -200 (Trig/Chol/HDL) [place] [address] [phone] Cholesterol 248 mg/dL High Less Than 200 53 High Density Lipoprotein 53 mg/dL 40-60 54 Cholesterol/HDL Ratio 4.68 AVERAGE High 1-4.44 Low Density Lipoprotein 163 mg/dL High Less Than 130 55 Laboratory test 07/01/2012 [facility] Hemoglobin A1c 5.4 % Less Than 56 [place] [address] 6.0 [phone] Order 06/21/2012 [facility] [place] [address] [phone] Xray 12/04/2011 [facility] Mammography, Normal [facility] [address] Screening, [place] [address] Bilateral [phone] CBC No Diff 11/28/2011 [facility] White Blood 6.0 CUMM 4.8- 10.8 [place] [address] Count [phone] Red Cell Count 4.29 CUMM 4.2-5.4 Hemoglobin 12.3 g/dL 12.0-16.0 Hematocrit 36 % 35-47 Mean Corpuscular Volume 83 um3 79-97 Mean Corpuscular Hemoglob 29 pg 27-31 Mean Corpuscular HGB Cone 34 g/dL 32-36 Redcell Distribution WDTH 13 % 10.5-15 Platelet Count 239 CUMM 150-450 Mean Platelet Volume 8.7 um3 7.4-10.4 Basic Metabolic Panel 11/28/2011 [facility] Sodium 136 mmol/L 135-145 [place] [address] [phone] Potassium 3.8 mmol/L 3.5-5.0 Chloride 102 mmol/L 101-111 Co2 (Carbon Dioxide) 25.0 mmol/L 22-32 Anion Gap 9.0 mmol/L 2-11 57 Glucose 102 mg/dL High 70-100 BUN 12 mg/dL 6-24 Creatinine 0.7 mg/dL 0.50-1.40 One Over Creatinine 1.42 BUN/Creatinine Ratio 17.1 8-20 Calcium 9.6 mg/dL 8.1-9.9 eGFR Non- 88.2 > 60 eGFR 113.5 > 60 58 Vitamin D, 25 11/28/2011 [facility] 25-Hydroxy Vitamin <4.0 ng/ mL () [place] [address] D2 [phone] 25-Hydroxy Vitamin D3 34 ng/mL () 25-Hydroxy Vitamin D Total 34 ng/mL () 59 Laboratory test 11/28/2011 [facility] Hemoglobin A1c 5.4 % Less 60 [place] [address] Than 6.0 [phone] Xray 05/20/2011 [facility] Dexa Scan, Osteopenia, [address] [place] ([place] [address] hips, pelvis, [phone] spine) Basic Metabolic 05/20/2011 [facility] Sodium 139 mmol/L 135- 145 [place] [address] [phone] Potassium 3.7 mmol/L 3.5-5.0 Chloride 108 mmol/L 101-111 Co2 (Carbon Dioxide) 25.0 mmol/L 22-32 Anion Gap 6.0 mmol/L 2-11 61 Glucose 92 mg/dL 70-100 BUN 12 mg/dL 6-24 Creatinine 0.60 mg/dL 0.50-1.40 One Over Creatinine 1.60 BUN/Creatinine Ratio 20.0 8-20 Calcium 9.3 mg/dL 8.1-9.9 eGFR Non- 105.4 > 60 eGFR 135.5 > 60 62 Vitamin D, 25 05/20/2011 [facility] 25-Hydroxy Vitamin <4.0 ng/ mL () [place] [address] D2 [phone] 25-Hydroxy Vitamin D3 36 ng/mL () 25-Hydroxy Vitamin D Total 36 ng/mL 25-80 63 Laboratory test 05/20/2011 [facility] Hemoglobin A1c 5.5 % Less 64 [place] [address] Than 6.0 [phone] Urine 05/20/2011 [facility] Microalbumin 5.0 mg/[place] [address] (MG/L) Random [phone] Urine Creatinine 115.18 mg/dL Zach Alb/Creatinine Ratio 4.3 UG/MG Less Than 30 65 Lipid Profile 05/20/2011 [facility] Triglyceride 117 mg/dL 40 -200 (Trig/Chol/HDL) [place] [address] [phone] Cholesterol 197 mg/dL Less Than 200 66 High Density Lipoprotein 42 mg/dL 40-60 67 Cholesterol/HDL Ratio 4.69 AVERAGE High 1-4.44 Low Density Lipoprotein 132 mg/dL High Less Than 100 68 Hemogram 10/21/2010 [facility] White Blood Count 7.5 CUMM 4.8 -10.8 [place] [address] [phone] Red Cell Count 4.57 CUMM 4.2-5.4 Hemoglobin 13.5 g/dL 12.0-16.0 Hematocrit 39 % 35-47 Mean Corpuscular Volume 86 um3 79-97 Mean Corpuscular Hemoglob 30 pg 27-31 Mean Corpuscular HGB Cone 35 g/dL 32-36 Platelet Count 268 CUMM 150-450 Basic Metabolic Panel 10/21/2010 [facility] Sodium 139 mmol/L 135-145 [place] [address] [phone] Potassium 3.8 mmol/L 3.5-5.0 Chloride 102 mmol/L 101-111 Co2 (Carbon Dioxide) 27.0 mmol/L 22-32 Anion Gap 10.0 mmol/L 2-11 69 Glucose 97 mg/dL 70-100 70 BUN 16 mg/dL 6-24 Creatinine 0.80 mg/dL 0.50-1.40 One Over Creatinine 1.20 BUN/Creatinine Ratio 20.0 8-20 Calcium 9.9 mg/dL 8.1-9.9 eGFR Non- 80.7 > 60 eGFR 97.6 > 60 71 Order 10/17/2010 [facility] Echocardiogram Mild as [address] [place] [address] [phone] Xray 08/28/2010 [facility] Mammography, Normal [address] Screening, [place] [address] [phone] Vitamin D, 25 04/10/2010 [facility] 25-Hydroxy Vitamin D2 <4.0 ng/mL () [place] [address] [phone] 25-Hydroxy Vitamin D3 35 ng/mL () 25-Hydroxy Vitamin D Total 35 ng/mL 25-80 72 Basic Metabolic Panel 04/10/2010 [facility] Sodium 137 mmol/L 135-145 [place] [address] [phone] Potassium 3.9 mmol/L 3.5-5.0 Chloride 107 mmol/L 101-111 Co2 (Carbon Dioxide) 25.0 mmol/L 22-32 Anion Gap 5.0 mmol/L 2-11 73 Glucose 100 mg/dL 70-100 74 BUN 13 mg/dL 6-24 Creatinine 0.67 mg/dL 0.50-1.40 One Over Creatinine 1.40 BUN/Creatinine Ratio 19.4 8-20 Calcium 9.8 mg/dL 8.1-9.9 75 eGFR Non- 99.0 > 60 eGFR 119.8 > 60 76 Basic Metabolic Panel 12/04/2009 [facility] Sodium 135 mmol/L 135-145 [place] [address] [phone] Potassium 3.8 mmol/L 3.5-5.0 Chloride 101 mmol/L 101-111 Co2 (Carbon Dioxide) 27.0 mmol/L 22-32 Anion Gap 7.0 mmol/L 2-11 77 Glucose 89 mg/dL 70-100 78 BUN 11 mg/dL 6-24 Creatinine 0.80 mg/dL 0.50-1.40 One Over Creatinine 1.20 BUN/Creatinine Ratio 13.8 8-20 Calcium 10.1 mg/dL High 8.1-9.9 79 eGFR Non- 81.0 > 60 eGFR 98.0 > 60 80 Vitamin D 25 12/04/2009 [facility] 25-Hydroxy Vitamin D2 <4.0 ng /mL () [place] [address] [phone] 25-Hydroxy Vitamin D3 33 ng/mL () 25-Hydroxy Vitamin D Total 33 ng/mL 25-80 81 Order 10/22/2009 [facility] Echocardiogram Mild as and [address] ? [place] [address] [phone] Order 10/16/2009 [facility] 24 [place] [address] Monitor [phone] Xray 08/31/2009 [facility] Chest, [address] [place] [place] [address] [phone] PTH Intact & 08/24/2009 [facility] PTH Intact 5.6 PMOL/L 1.3- 9 82 [place] [address] .3 [phone] Calcium For Pthi 9.8 mg/dL 8.1-9.9 83 Laboratory test 08/24/2009 [facility] Magnesium 2.1 mg/dL 1.7 -2.6 [place] [address] [phone] Basic Metabolic 08/24/2009 [facility] Sodium 135 mmol/L 135- 145 Panel [place], [place] [id number] [phone] Potassium 3.9 mmol/L 3.5-5.0 Chloride 101 mmol/L 101-111 Co2 (Carbon Dioxide) 27.0 mmol/L 22-32 Anion Gap 7.0 mmol/L 2-11 84 Glucose 93 mg/dL 70-100 85 BUN 15 mg/dL 6-24 Creatinine 0.70 mg/dL 0.50-1.40 One Over Creatinine 1.40 BUN/Creatinine Ratio 21.4 High 8-20 Calcium 9.7 mg/dL 8.1-9.9 86 eGFR Non- 94.5 > 60 eGFR 114.4 > 60 87 Vitamin D 25 08/24/2009 [facility] 25-Hydroxy Vitamin D2 <4.0 ng /mL () [place] [address] [phone] 25-Hydroxy Vitamin D3 26 ng/mL () 25-Hydroxy Vitamin D Total 26 ng/mL 25-80 88 Laboratory test 08/24/2009 [facility] Insulin 12 uU/mL 2.6- 25 89 finding [place], [place] [address]64 [phone] Xray 04/19/2009 [facility] Bone Dens. Osteoporosis [address] [place] [address] Absorp >1 [phone] Hemogram 04/11/2009 [facility] White Blood 5.7 CUMM 4.8-10.8 [place] [address] Count [phone] Red Cell Count 4.61 CUMM 4.2-5.4 Hemoglobin 13.8 g/dL 12.0-16.0 Hematocrit 39 % 35-47 Mean Corpuscular Volume 84 um3 79-97 Mean Corpuscular Hemoglob 30 pg 27-31 Mean Corpuscular HGB Cone 36 g/dL 32-36 Platelet Count 237 CUMM 150-450 Comp Metabolic Panel 04/11/2009 [facility] Sodium 139 mmol/L 135-145 [place], [place] [address] [phone] Potassium 4.0 mmol/L 3.5-5.0 Chloride 107 mmol/L 101-111 Co2 (Carbon Dioxide) 25.0 mmol/L 22-32 Anion Gap 7.0 mmol/L 2-11 90 Glucose 110 mg/dL High 70-100 91 BUN 11 mg/dL 6-24 Creatinine 0.80 mg/dL 0.50-1.40 One Over Creatinine 1.20 BUN/Creatinine Ratio 13.8 8-20 Calcium 9.9 mg/dL 8.1-9.9 92 Total Protein 7.3 GM/DL 6.2-8.1 Albumin 4.5 GM/DL 3.6-5.4 Globulin 2.8 GM/DL 2-4 Albumin/Globulin Ratio 1.6 1-3 Bilirubin Total 0.8 mg/dL 0.4-1.5 93 Alkaline Phosphatase 94 U/L 30-110 Alt (SGPT) 22 U/L 14-54 Ast (Sgot) 23 U/L 12-42 Laboratory test 04/11/2009 [facility] TSH 1.55 MIU/ML 0.34- 5.60 finding [place], [place] [address] [phone] Lipid Profile 04/11/2009 [facility] Triglyceride 57 mg/dL 40- 200 (Trig/Chol/HDL) [place] [address] [phone] Cholesterol 197 mg/dL Less Than 200 94 High Density Lipoprotein 59 mg/dL 40-60 95 Cholesterol/HDL Ratio 3.34 AVERAGE 1-4.44 Low Density Lipoprotein 127 mg/dL Less Than 130 96 Vitamin D 25 04/11/2009 [facility] 25-Hydroxy Vitamin D2 <4.0 ng /mL () [place] [address] [phone] 25-Hydroxy Vitamin D3 21 ng/mL () 25-Hydroxy Vitamin D Total 21 ng/mL Abnormal () 97 Order 04/11/2009 [facility] [place] [address] [phone] 1 SEE RESULT BELOW Name: BRENT VALDEZ V : [address]: Angeline Hawkins MD Acct: [id number] Unit: [id number] AGE: 58 Location: [facility] Re02/08/19 SEX: F Status: REG REF SPEC: [id number] JOHN: 02/08/19-1530 [facility] DR: Angeline Hawkins MD REQ: [id number] RECD: 02/09/19-1232 STATUS: RANDY ONEAL DR: Myah Lemos MD _ ORDERED: TP IMAGE ANALYS, HPV/Thin Prep COMMENTS: [id number] Negative for Intraepithelial lesion or Malignancy Date Time Test Result Flag (u) Normal Range 02/08/19 1530 @ HPV RNA Negative Negative @ @ The high-risk HPV types detected by the assay include: 16, @ 18, 31, 33, 35, 39, 45, 51, 52, 56, 58, 59, 66, and 68. A. Ectocervical/Endocervical Specimen Adequacy: Satisfactory of evaluation Transformation zone component identified Patient Information: HPV: High risk HPV RNA testing regardless of pap results. Actual Specimen Date: 02/08/19 LMP If Unknown: 2000 Date of Last Specimen: 08/31/14 Post Menopausal?: Y Signed by and Reported on: PRINCE Allred(ASCP) [id number] This Pap test was evaluated with the assistance of the ThinPrep Test Imaging System. Due to cytologic findings at the rifle case repairer microscope, comprehensive manual rescreening by a [employer] may be required. The Pap Smear is a screening test designed to aid in the detection of premalignant and malignant conditions of the uterine cervix. It is not a diagnostic procedure and should not be used as the sole means of detecting cervical cancer. Both false- positive and false- negative reports do occur. Depending on your risk status, a Pap smear should be obtained and evaluated every 1-3 years. END OF REPORT DEPARTMENT OF PATHOLOGY, [address] [place] [address] Ilia Urias M.D. Director [facility] # [id number] 2 Because ethnic data is not always readily available, this report includes an eGFR for both -Americans and non- Americans. The National Kidney Disease Education Program (NKDEP) does not endorse the use of the MDRD equation for patients that are not between the ages of 18 and 70, are , have extremes of body size, muscle mass, or nutritional status, or are non- or non-. According to the National Kidney Foundation, irrespective of diagnosis, the stage of the disease is based on the level of kidney function: Stage Description GFR(mL/min/1.73 m(2)) 1 Kidney damage with normal or decreased GFR 90 2 Kidney damage with mild decrease in GFR 60-89 3 Moderate decrease in GFR 30-59 4 Severe decrease in GFR 15-29 5 Kidney failure <15 (or dialysis) 3 Desirable: <150 Borderline High: 150-199 High: 200-499 Very High: >500 4 Desirable: <200 Borderline High: 200-239 High: >239 5 Low: <40 Desirable: 40-60 High: >60 6 Desirable: <100 Near Optimal: 100-129 Borderline High: 130-159 High: 160-189 Very High: >189 7 Therapeutic target for the treatment of diabetes mellitus patients is <7% HBA1C, and in selective patients <6.0%. Please refer to [place] [employer] diabetic care guidelines for further information. 8 FASTING 9 Unable to calculate due to low microalbumin 10 Desirable <150 Borderline high 150-199 High 200-499 Very High >500 11 Desirable <200 Borderline high 200-239 High >239 12 Low <40 Desirable: 40-60 High: >60 13 Desirable: <100 mg/dL Near Optimal: 100-129 mg/dL Borderline High: 130-159 mg/dL High: 160-189 mg/dL Very High: >189 mg/dL 14 Therapeutic target for the treatment of diabetes Mellitus patients is <7% HBA1C, and in selective patients <6.0%.Please refer to [place] [employer] Diabetic care guidelines for further information. 15 Because ethnic data is not always readily available, this report includes an eGFR for both -Americans and non- Americans. The National Kidney Disease Education Program (NKDEP) does not endorse the use of the MDRD equation for patients that are not between the ages of 18 and 70, are , have extremes of body size, muscle mass, or nutritional status, or are non- or non-. According to the National Kidney Foundation, irrespective of diagnosis, the stage of the disease is based on the level of kidney function: Stage Description GFR(mL/min/1.73 m(2)) 1 Kidney damage with normal or decreased GFR 90 2 Kidney damage with mild decrease in GFR 60-89 3 Moderate decrease in GFR 30-59 4 Severe decrease in GFR 15-29 5 Kidney failure <15 (or dialysis) 16 [id number] SEE RESULT BELOW Name: BRENT VALDEZ V : [address]: Myah Lemos MD Acct: [id number] Unit: [id number] AGE: 55 Location: [facility] Re03/19/16 SEX: F Status: REG REF SPEC: [id number] JOHN: 03/19/16 [facility] DR: Steven Hartley MD REQ: [id number] RECD: 03/19/16 STATUS: RANDY ONEAL DR: Myah Lemos MD _ ORDERED: LEVEL IV COMMENTS: [id number] FINAL DIAGNOSIS Breast, right, stereotactic biopsy: -- Benign breast tissue with non-proliferative fibrocystic change and rare associated microcalcifications. -- No evidence of invasive or in situ carcinoma. COMMENT: Clinical and radiologic correlation is recommended. CLINICAL HISTORY New microcalcifications, history of ipsilateral breast cancer PRE-OPERATIVE DIAGNOSIS Right breast calcifications GROSS DESCRIPTION The specimen is received in formalin labeled, Right Stereotactic Breast Biopsy, and consists of a 3.0 x 2.5 x 0.3 cm aggregate of yellow irregular fibrofatty soft tissue fragments admixed with scant red-brown blood clot. Entirely submitted, two cassettes. Signed (signature on file) Joanna Russo MD 10/24 0956 END OF REPORT * ML=Testing performed at Main Lab DEPARTMENT OF PATHOLOGY, [address] [place] [address] Ilia Urias M.D. Director [facility] # [id number] 18 PT IS FASTING 19 PT IS FASTING 20 Desirable <150 Borderline high 150-199 High 200-499 Very High >500 21 Desirable <200 Borderline high 200-239 High >239 22 Low <40 Desirable: 40-60 High: >60 23 Desirable: <100 mg/dL Near Optimal: 100-129 mg/dL Borderline High: 130-159 mg/dL High: 160-189 mg/dL Very High: >189 mg/dL 24 Therapeutic target for the treatment of diabetes Mellitus patients is <7% HBA1C, and in selective patients <6.0%.Please refer to [place] [employer] Diabetic care guidelines for further information. 25 PT IS FASTING 26 Because ethnic data is not always readily available, this report includes an eGFR for both -Americans and non- Americans. The National Kidney Disease Education Program (NKDEP) does not endorse the use of the MDRD equation for patients that are not between the ages of 18 and 70, are , have extremes of body size, muscle mass, or nutritional status, or are non- or non-. According to the National Kidney Foundation, irrespective of diagnosis, the stage of the disease is based on the level of kidney function: Stage Description GFR(mL/min/1.73 m(2)) 1 Kidney damage with normal or decreased GFR 90 2 Kidney damage with mild decrease in GFR 60-89 3 Moderate decrease in GFR 30-59 4 Severe decrease in GFR 15-29 5 Kidney failure <15 (or dialysis) 27 REFERENCE VALUE 25-HYDROXY D TOTAL (D2+D3) Optimum levels in the healthy population are 20-50, patients with bone disease may benefit from higher levels within this range. Test Performed by: [facility] [place] [address] High Risk Ob: Tyson Weems II, M.D., Ph.D. 28 Therapeutic target for the treatment of diabetes Mellitus patients is <7% HBA1C, and in selective patients <6.0%.Please refer to [place] [employer] Diabetic care guidelines for further information. 29 Because ethnic data is not always readily available, this report includes an eGFR for both -Americans and non- Americans. The National Kidney Disease Education Program (NKDEP) does not endorse the use of the MDRD equation for patients that are not between the ages of 18 and 70, are , have extremes of body size, muscle mass, or nutritional status, or are non- or non-. According to the National Kidney Foundation, irrespective of diagnosis, the stage of the disease is based on the level of kidney function: Stage Description GFR(mL/min/1.73 m(2)) 1 Kidney damage with normal or decreased GFR 90 2 Kidney damage with mild decrease in GFR 60-89 3 Moderate decrease in GFR 30-59 4 Severe decrease in GFR 15-29 5 Kidney failure <15 (or dialysis) 30 RUN DATE: 06/02/14 [facility] LAB LIVE PAGE 1 RUN TIME: [address] [place] [address] Specimen Inquiry Name: BRENT VALDEZ V : [address]: Myah Lemos MD Acct: [id number] Unit: [id number] AGE: 54 Location: [facility] Re05/31/14 SEX: F Status: REG REF SPEC: [id number] JOHN: 05/31/[address]: Myah Lemos MD REQ: [id number] RECD: 05/31/14 STATUS: SOUT _ ORDERED: LEVEL IV FINAL DIAGNOSIS Skin, dorsum left foot above third toe, biopsy: Blue nevus. COMMENT: Melanocytes extend to the biopsy base. PRE-OPERATIVE DIAGNOSIS Nevus with change in pigment; rule out melanoma GROSS DESCRIPTION The specimen is received in formalin labeled Kilo Crespo and consists of a 0.4 x 0.3 cm. mottled carlisle-brown irregular to ovoid skin shave. The specimen is inked, bisected, and submitted entirely in one cassette. Signed (signature on file) Joanna Russo MD 1458 END OF REPORT * ML=Testing performed at Main Lab DEPARTMENT OF PATHOLOGY, [address] [place] [address] Ilia Urias M.D. Director [facility] # [id number] 31 Microalbuminuria in a random sample is defined as: Microalbumin/Creatinine ratio of 30-299 ug/mg. 32 Therapeutic target for the treatment of diabetes Mellitus patients is <7% HBA1C, and in selective patients <6.0%.Please refer to [place] [employer] Diabetic care guidelines for further information. 33 Desirable <150 Borderline high 150-199 High 200-499 Very High >500 34 Desirable <200 Borderline high 200-239 High >239 35 Low <40 Desirable: 40-60 High: >60 36 Desirable <100 Near Optimal 100-129 Borderline high 130-159 High 160-189 Very High >189 37 Because ethnic data is not always readily available, this report includes an eGFR for both -Americans and non- Americans. The National Kidney Disease Education Program (NKDEP) does not endorse the use of the MDRD equation for patients that are not between the ages of 18 and 70, are , have extremes of body size, muscle mass, or nutritional status, or are non- or non-. According to the National Kidney Foundation, irrespective of diagnosis, the stage of the disease is based on the level of kidney function: Stage Description GFR(mL/min/1.73 m(2)) 1 Kidney damage with normal or decreased GFR 90 2 Kidney damage with mild decrease in GFR 60-89 3 Moderate decrease in GFR 30-59 4 Severe decrease in GFR 15-29 5 Kidney failure <15 (or dialysis) 38 -- REFERENCE VALUE -- 25-HYDROXY D TOTAL (D2+D3) Optimum levels in the healthy population are 20-50, patients with bone disease may benefit from higher levels within this range. Test Performed by: [address] [address] High Risk Ob: Bora Robles III, M.D. 39 Therapeutic target for the treatment of diabetes Mellitus patients is <7% HBA1C, and in selective patients <6.0%.Please refer to [place] [employer] Diabetic care guidelines for further information. 40 Because ethnic data is not always readily available, this report includes an eGFR for both -Americans and non- Americans. The National Kidney Disease Education Program (NKDEP) does not endorse the use of the MDRD equation for patients that are not between the ages of 18 and 70, are , have extremes of body size, muscle mass, or nutritional status, or are non- or non-. According to the National Kidney Foundation, irrespective of diagnosis, the stage of the disease is based on the level of kidney function: Stage Description GFR(mL/min/1.73 m(2)) 1 Kidney damage with normal or decreased GFR 90 2 Kidney damage with mild decrease in GFR 60-89 3 Moderate decrease in GFR 30-59 4 Severe decrease in GFR 15-29 5 Kidney failure <15 (or dialysis) 41 Microalbuminuria in a random sample is defined as: Microalbumin/Creatinine ratio of 30-299 ug/mg. 42 -- REFERENCE VALUE -- 25-HYDROXY D TOTAL (D2+D3) Optimum levels in the normal population are 25-80 Test Performed by: [address] [address] High Risk Ob: Bora Robels III, M.D. 43 HDL Interpretation: Undesirable: High Risk: Less than 40 mg/dL Desirable: Low Risk: Greater than 60 mg/dL 44 LDL Interpretation: Low Risk Optimal Level: LDL Less than 100 mg/dL Near or Above Optimal: LDL 100-129 mg/dL Borderline High Risk: LDL 130-159 mg/dL High Risk: LDL 160-189 mg/dL Very High Risk: LDL Greater than 189 mg/dL 45 Therapeutic target for the treatment of diabetes Mellitus patients is <7% HBA1C, and in selective patients <6.0%.Please refer to [place] [employer] Diabetic care guidelines for further information. 46 Because ethnic data is not always readily available, this report includes an eGFR for both -Americans and non- Americans. The National Kidney Disease Education Program (NKDEP) does not endorse the use of the MDRD equation for patients that are not between the ages of 18 and 70, are , have extremes of body size, muscle mass, or nutritional status, or are non- or non-. According to the National Kidney Foundation, irrespective of diagnosis, the stage of the disease is based on the level of kidney function: Stage Description GFR(mL/min/1.73 m(2)) 1 Kidney damage with normal or decreased GFR 90 2 Kidney damage with mild decrease in GFR 60-89 3 Moderate decrease in GFR 30-59 4 Severe decrease in GFR 15-29 5 Kidney failure <15 (or dialysis) 47 Because ethnic data is not always readily available, this report includes an eGFR for both -Americans and non- Americans. The National Kidney Disease Education Program (NKDEP) does not endorse the use of the MDRD equation for patients that are not between the ages of 18 and 70, are , have extremes of body size, muscle mass, or nutritional status, or are non- or non-. According to the National Kidney Foundation, irrespective of diagnosis, the stage of the disease is based on the level of kidney function: Stage Description GFR(mL/min/1.73 m(2)) 1 Kidney damage with normal or decreased GFR 90 2 Kidney damage with mild decrease in GFR 60-89 3 Moderate decrease in GFR 30-59 4 Severe decrease in GFR 15-29 5 Kidney failure <15 (or dialysis) 48 FASTING 49 HDL Interpretation: Undesirable: High Risk: Less than 40 MG/DL Desirable: Low Risk: Greater than 60 MG/DL 50 LDL Interpretation: Low Risk Optimal Level: LDL Less than 100 MG/DL Near or Above Optimal: LDL 100-129 MG/DL Borderline High Risk: LDL 130-159 MG/DL High Risk: LDL 160-189 MG/DL Very High Risk: LDL Greater than 189 MG/DL 51 Anion gap measurement may be of limited value in the presence of any alkalosis, especially in a combined acid base disorder. . 52 Because ethnic data is not always readily available, this report includes an eGFR for both -Americans and non- Americans. The National Kidney Disease Education Program (NKDEP) does not endorse the use of the MDRD equation for patients that are not between the ages of 18 and 70, are , have extremes of body size, muscle mass, or nutritional status, or are non- or non-. According to the National Kidney Foundation, irrespective of diagnosis, the stage of the disease is based on the level of kidney function: Stage Description GFR(mL/min/1.73 m(2)) 1 Kidney damage with normal or decreased GFR 90 2 Kidney damage with mild decrease in GFR 60-89 3 Moderate decrease in GFR 30-59 4 Severe decrease in GFR 15-29 5 Kidney failure <15 (or dialysis) 53 CHOLESTEROL INTERPRETATION: Desirable: Less than 200 MG/DL Borderline-High Risk: 200-239 MG/DL High-Risk: 240 MG/DL and over 54 HDL INTERPRETATION: Undesirable: High Risk: Less than 40 MG/DL Desirable: Low Risk: Greater than 60 MG/DL 55 LDL INTERPRETATION: Low Risk Optimal Level: LDL Less than 100 MG/DL Near or Above Optimal: LDL 100-129 MG/DL Borderline High Risk: LDL 130-159 MG/DL High Risk: LDL 160-189 MG/DL Very High Risk: LDL Greater than 189 MG/DL 56 THERAPEUTIC TARGET FOR THE TREATMENT OF DIABETES MELLITUS PATIENTS IS <7% HBA1C, AND IN SELECTIVE PATIENTS <6.0%. PLEASE REFER TO [employer] [employer] DIABETIC CARE GUIDELINES FOR FURTHER INFORMATION. 57 Anion gap measurement may be of limited value in the presence of any alkalosis, especially in a combined acid base disorder. . 58 Because ethnic data is not always readily available, this report includes an eGFR for both -Americans and non- Americans. The National Kidney Disease Education Program (NKDEP) does not endorse the use of the MDRD equation for patients that are not between the ages of 18 and 70, are , have extremes of body size, muscle mass, or nutritional status, or are non- or non-. According to the National Kidney Foundation, irrespective of diagnosis, the stage of the disease is based on the level of kidney function: Stage Description GFR(mL/min/1.73 m(2)) 1 Kidney damage with normal or decreased GFR 90 2 Kidney damage with mild decrease in GFR 60-89 3 Moderate decrease in GFR 30-59 4 Severe decrease in GFR 15-29 5 Kidney failure <15 (or dialysis) 59 -- REFERENCE VALUE -- 25-HYDROXY D TOTAL (D2+D3) Optimum levels in the normal population are 25-80 Test Performed by: [facility] Dpt of Lab Med and Pathology [address] [place] [address] High Risk Ob: Bora Robles III, M.D. 60 THERAPEUTIC TARGET FOR THE TREATMENT OF DIABETES MELLITUS PATIENTS IS <7% HBA1C, AND IN SELECTIVE PATIENTS <6.0%. PLEASE REFER TO [employer] [employer] DIABETIC CARE GUIDELINES FOR FURTHER INFORMATION. 61 Anion gap measurement may be of limited value in the presence of any alkalosis, especially in a combined acid base disorder. . 62 Because ethnic data is not always readily available, this report includes an eGFR for both -Americans and non- Americans. The National Kidney Disease Education Program (NKDEP) does not endorse the use of the MDRD equation for patients that are not between the ages of 18 and 70, are , have extremes of body size, muscle mass, or nutritional status, or are non- or non-. According to the National Kidney Foundation, irrespective of diagnosis, the stage of the disease is based on the level of kidney function: Stage Description GFR(mL/min/1.73 m(2)) 1 Kidney damage with normal or decreased GFR 90 2 Kidney damage with mild decrease in GFR 60-89 3 Moderate decrease in GFR 30-59 4 Severe decrease in GFR 15-29 5 Kidney failure <15 (or dialysis) 63 -- REFERENCE VALUE -- 25-HYDROXY D TOTAL (D2+D3) Optimum levels in the normal population are 25-80 Test Performed by: [facility] Dpt of Lab Med and Pathology [address] [place], [place] [id number] High Risk Ob: Bora Robles III, M.D. 64 THERAPEUTIC TARGET FOR THE TREATMENT OF DIABETES MELLITUS PATIENTS IS <7% HBA1C, AND IN SELECTIVE PATIENTS <6.0%. PLEASE REFER TO [employer] DIABETIC CARE GUIDELINES FOR FURTHER INFORMATION. 65 MICROALBUMINURIA IN A RANDOM SAMPLE IS DEFINED : MICROALBUMIN/CREATININE RATIO OF 30-299 ug/mg. . 66 CHOLESTEROL INTERPRETATION: Desirable: Less than 200 MG/DL Borderline-High Risk: 200-239 MG/DL High-Risk: 240 MG/DL and over 67 HDL INTERPRETATION: Undesirable: High Risk: Less than 40 MG/DL Desirable: Low Risk: Greater than 60 MG/DL 68 LDL INTERPRETATION: Low Risk Optimal Level: LDL Less than 100 MG/DL Near or Above Optimal: LDL 100-129 MG/DL Borderline High Risk: LDL 130-159 MG/DL High Risk: LDL 160-189 MG/DL Very High Risk: LDL Greater than 189 MG/DL 69 Anion gap measurement may be of limited value in the presence of any alkalosis, especially in a combined acid base disorder. . 70 Note change in reference range as of 06/29/08. The change was based on recommendations from the [place] [employer]. 71 Because ethnic data is not always readily available, this report includes an eGFR for both -Americans and non- Americans. The National Kidney Disease Education Program (NKDEP) does not endorse the use of the MDRD equation for patients that are not between the ages of 18 and 70, are , have extremes of body size, muscle mass, or nutritional status, or are non- or non-. According to the National Kidney Foundation, irrespective of diagnosis, the stage of the disease is based on the level of kidney function: Stage Description GFR(mL/min/1.73 m(2)) 1 Kidney damage with normal or decreased GFR 90 2 Kidney damage with mild decrease in GFR 60-89 3 Moderate decrease in GFR 30-59 4 Severe decrease in GFR 15-29 5 Kidney failure <15 (or dialysis) 72 -- REFERENCE VALUE -- 25-HYDROXY D TOTAL (D2+D3) Optimum levels in the normal population are 25-80 Test Performed by: [facility] Dpt of Lab Med and Pathology [address] [place] [id number] High Risk Ob: Bora Robles III, M.D. 73 Anion gap measurement may be of limited value in the presence of any alkalosis, especially in a combined acid base disorder. . 74 Note change in reference range as of 06/29/08. The change was based on recommendations from the [place] [employer]. 75 Please note change in reference range effective 08 . 76 Because ethnic data is not always readily available, this report includes an eGFR for both -Americans and non- Americans. The National Kidney Disease Education Program (NKDEP) does not endorse the use of the MDRD equation for patients that are not between the ages of 18 and 70, are , have extremes of body size, muscle mass, or nutritional status, or are non- or non-. According to the National Kidney Foundation, irrespective of diagnosis, the stage of the disease is based on the level of kidney function: Stage Description GFR(mL/min/1.73 m(2)) 1 Kidney damage with normal or decreased GFR 90 2 Kidney damage with mild decrease in GFR 60-89 3 Moderate decrease in GFR 30-59 4 Severe decrease in GFR 15-29 5 Kidney failure <15 (or dialysis) 77 Anion gap measurement may be of limited value in the presence of any alkalosis, especially in a combined acid base disorder. . 78 Note change in reference range as of 06/29/08. The change was based on recommendations from the [employer]. 79 Please note change in reference range effective 08 . 80 Because ethnic data is not always readily available, this report includes an eGFR for both -Americans and non- Americans. The National Kidney Disease Education Program (NKDEP) does not endorse the use of the MDRD equation for patients that are not between the ages of 18 and 70, are , have extremes of body size, muscle mass, or nutritional status, or are non- or non-. According to the National Kidney Foundation, irrespective of diagnosis, the stage of the disease is based on the level of kidney function: Stage Description GFR(mL/min/1.73 m(2)) 1 Kidney damage with normal or decreased GFR 90 2 Kidney damage with mild decrease in GFR 60-89 3 Moderate decrease in GFR 30-59 4 Severe decrease in GFR 15-29 5 Kidney failure <15 (or dialysis) 81 -- REFERENCE VALUE -- 25-HYDROXY D TOTAL (D2+D3) Optimum levels in the normal population are 25-80 Test Performed by: [facility] Dpt of Lab Med and Pathology [address] [place] [address] High Risk Ob: Bora Robles III, M.D. 82 PLEASE NOTE CHANGE IN REFERENCE RANGE OF 11/16/06. 83 Please note change in reference range effective 08 . 84 Anion gap measurement may be of limited value in the presence of any alkalosis, especially in a combined acid base disorder. . 85 Note change in reference range as of 06/29/08. The change was based on recommendations from the [employer]. 86 Please note change in reference range effective 08 . 87 Because ethnic data is not always readily available, this report includes an eGFR for both -Americans and non- Americans. The National Kidney Disease Education Program (NKDEP) does not endorse the use of the MDRD equation for patients that are not between the ages of 18 and 70, are , have extremes of body size, muscle mass, or nutritional status, or are non- or non-. According to the National Kidney Foundation, irrespective of diagnosis, the stage of the disease is based on the level of kidney function: Stage Description GFR(mL/min/1.73 m(2)) 1 Kidney damage with normal or decreased GFR 90 2 Kidney damage with mild decrease in GFR 60-89 3 Moderate decrease in GFR 30-59 4 Severe decrease in GFR 15-29 5 Kidney failure <15 (or dialysis) 88 -- REFERENCE VALUE -- 25-HYDROXY D TOTAL (D2+D3) Optimum levels in the normal population are 25-80 Test Performed by: [facility] Dpt of Lab Med and Pathology [address] [place] [address] High Risk Ob: Bora Robles III, M.D. 89 Test Performed by: [facility] Dpt of Lab Med and Pathology [address] [place] [address] High Risk Ob: Bora Robles III, M.D. 90 Anion gap measurement may be of limited value in the presence of any alkalosis, especially in a combined acid base disorder. . 91 Note change in reference range as of 06/29/08. The change was based on recommendations from the [place] [employer]. 92 Please note change in reference range effective 08 . 93 A metabolite of Naproxen, O-desmethylnaproxen, has been shown to interfere with the [place] method for measuring total bilirubin. Samples from patients who have taken Naproxen have shown spurious elevation in total bilirubin levels. 94 CHOLESTEROL INTERPRETATION: Desirable: Less than 200 MG/DL Borderline-High Risk: 200-239 MG/DL High-Risk: 240 MG/DL and over 95 HDL INTERPRETATION: Undesirable: High Risk: Less than 40 MG/DL Desirable: Low Risk: Greater than 60 MG/DL 96 LDL INTERPRETATION: Low Risk Optimal Level: LDL Less than 100 MG/DL Near or Above Optimal: LDL 100-129 MG/DL Borderline High Risk: LDL 130-159 MG/DL High Risk: LDL 160-189 MG/DL Very High Risk: LDL Greater than 189 MG/DL 97 Interpretation: 10-24 (mild to moderate deficiency) -- REFERENCE VALUE -- 25-HYDROXY D TOTAL (D2+D3) Optimum levels in the normal population are 25-80 Test Performed by: [facility] Dpt of Lab Med and Pathology [address] [place] [address] High Risk Ob: Bora Robles III, M.D. Procedures Date Code Description Status 09/05/2018 [id number] Mammogram Completed 08/24/2018 [id number] Mammogram Completed 05/27/2017 [id number] Mammogram Completed 10/20/2016 [id number] Mammogram Completed 10/14/2016 [id number] Bone Mineral Density Test Completed 03/17/2016 [id number] Mammogram Completed 03/12/2015 [id number] Mammogram Completed 05/31/2014 68841 Shave Skin Lesion .6-1CM Completed Scalp/Neck/Hands/Feet/Genitalia 05/30/2014 [id number] Bone Mineral Density Test Completed 05/24/2014 87451 Remove Foreign Body Subcutaneous Simple Completed 12/16/2013 [id number] Mammogram Completed 12/15/2012 [id number] Mammogram Completed 06/21/2012 53890 Electrocardiogram Complete Completed 12/04/2011 [id number] Mammogram Completed 05/20/2011 [id number] Bone Mineral Density Test Completed 08/28/2010 [id number] Mammogram Completed 10/16/2009 47048 ECG Monitor/Report W/O Superimposition Scanning Completed 04/19/2009 [id number] Bone Mineral Density Test Completed 04/11/2009 68786 Electrocardiogram Complete Completed 04/09/2009 [id number] Mammogram Completed Encounters Type Date Location Provider Dx Diagnosis Office Visit 03/24/2019 Main Office Myah Lemos, M54.17 Radiculopathy, 3:20p lumbosacral region M25.561 Pain in right knee I10 Essential (primary) hypertension F43.21 Adjustment disorder with depressed mood Office Visit 12/02/2017 1:40p Main Office Myah Mcfarland Z00.01 Encounter for MD [facility] general adult medical exam w abnormal findings I10 Essential (primary) hypertension E78.00 Pure hypercholesterolemia, unspecified E66.09 Other obesity due to excess calories R73.01 Impaired fasting glucose Office Visit 09/10/2016 2:00p Main Office Myah Mcfarland Z00.01 Encounter for MD [facility] general adult medical exam w abnormal findings I10 Essential (primary) hypertension E78.00 Pure hypercholesterolemia, unspecified E66.09 Other obesity due to excess calories R73.01 Impaired fasting glucose M81.0 Age-related osteoporosis w/o current pathological fracture E55.9 Vitamin D deficiency, unspecified Office Visit 10/08/2015 1:40p Main Office Myah Mcfarland I10 Essential ( primary) MD [facility] hypertension E66.09 Other obesity due to excess calories Office Visit 09/06/2015 2:00p Main Office Myah Mcfarland Z00.01 Encounter for MD [facility] general adult medical exam w abnormal findings I35.0 Nonrheumatic aortic (valve) stenosis I10 Essential (primary) hypertension E78.0 Pure hypercholesterolemia Office Visit 03/07/2015 2:40p Main Office Myah Mcfarland 401.9 Hypertension Unspec MD [facility] 790.21 Impaired Fasting Glucose 268.9 Vitamin D Deficiency Unspec 733.00 Osteoporosis Unspec V76.19 Screening Breast Exam Malignant Neoplasms Other Office Visit 05/24/2014 1:00p Main Office Myah Mcfarland V70.0 Examination General MD [facility] Routine AT [facility] 401.9 Hypertension Unspec 272.0 Hypercholesterolemia Pure 790.21 Impaired Fasting Glucose 733.00 Osteoporosis Unspec 448.1 Nevus Non-Neoplastic 709.09 Dyschromia Other Office Visit 11/21/2013 2:00p Main Office Myah Mcfarland 401.9 Hypertension Unspec MD [facility] 790.21 Impaired Fasting Glucose V76.10 Screening For Malignant Neoplasm Breast Office Visit 07/08/2013 10:40a Main Office Myah Mcfarland 388.31 Tinnitus MD [facility] Subjective 381.81 Eustachian Tube Dysfunction Office Visit 05/19/2013 1:00p Main Office Myah Mcfarland 401.9 Hypertension Unspec MD [facility] 790.21 Impaired Fasting Glucose 272.0 Hypercholesterolemia Pure 733.00 Osteoporosis Unspec 268.9 Vitamin D Deficiency Unspec 278.00 Obesity Unspec V76.51 Special Screening For Malignant Neoplasms Colon Office Visit 02/11/2013 12:40p Main Office Myah Lemos, 461.0 Sinusitis Acute MD Maxillary 373.11 Hordeolum Externum Office Visit 10/18/2012 2:00p Main Office Myah Mcfarland 401.9 Hypertension Unspec MD [facility] 272.0 Hypercholesterolemia Pure 790.21 Impaired Fasting Glucose 733.00 Osteoporosis Unspec V76.10 Screening For Malignant Neoplasm Breast Office Visit 09/13/2012 2:00p Main Office Myah Mcfarland 401.9 Hypertension Unspec MD [facility] Office Visit 08/12/2012 1:00p Main Office Myah Mcfarland 401.9 Hypertension Unspec MD [facility] 272.0 Hypercholesterolemia Pure Office Visit 06/21/2012 2:00p Main Office Myah Mcfarland 401.9 Hypertension Unspec MD [facility] 790.21 Impaired Fasting Glucose Office Visit 01/01/2012 1:00p Main Office Myah Lemos, 382.9 Otitis Media Unspec 389.9 Hearing Loss Unspec Office Visit 12/08/2011 3:00p Main Office Myah Lemos 790.21 Impaired Fasting MD Glucose 401.9 Hypertension Unspec 268.9 Vitamin D Deficiency Unspec 733.00 Osteoporosis Unspec 278.00 Obesity Unspec Office Visit 05/26/2011 11:00a Main Office Myah Lemos 790.21 Impaired Fasting MD Glucose 401.9 Hypertension Unspec 733.00 Osteoporosis Unspec 268.9 Vitamin D Deficiency Unspec 278.00 Obesity Unspec Office Visit 01/23/2011 11:00a Main Office Myah Mcfarland 401.9 Hypertension Unspec MD [facility] 733.00 Osteoporosis Unspec 790.21 Impaired Fasting Glucose 278.00 Obesity Unspec V76.51 Special Screening For Malignant Neoplasms Colon Office Visit 10/24/2010 11:00a Main Office Myah Mcfarland 401.9 Hypertension Unspec MD [facility] 785.2 Murmur Cardiac Undiagnosed 268.9 Vitamin D Deficiency Unspec 311 Depressive Disorder Not Elsewhere Spec 278.00 Obesity Unspec 733.00 Osteoporosis Unspec Office Visit 08/22/2010 12:20p Main Office Myah Mcfarland 401.9 Hypertension Unspec MD [facility] 785.1 Palpitations 785.2 Murmur Cardiac Undiagnosed V76.10 Screening For Malignant Neoplasm Breast Office Visit 04/16/2010 1:00p Main Office Myah Mcfarland 401.9 Hypertension Unspec MD [facility] 790.21 Impaired Fasting Glucose 268.9 Vitamin D Deficiency Unspec 733.00 Osteoporosis Unspec 278.00 Obesity Unspec 727.1 Bunion Office Visit 12/17/2009 1:40p Main Office Myah Mcfarland 401.9 Hypertension Unspec MD [facility] 268.9 Vitamin D Deficiency Unspec 785.1 Palpitations Office Visit 11/05/2009 10:20a Main Office Myah Mcfarland 789.04 Pain Abdominal Left MD [facility] Lower Quadrant Office Visit 10/29/2009 11:40a Main Office Myah Mcfarland 785.2 Murmur Cardiac MD [facility] Undiagnosed 785.1 Palpitations 401.9 Hypertension Unspec 300.02 Anxiety Disorder Generalized 311 Depressive Disorder Not Elsewhere Spec Office Visit 10/15/2009 1:00p Main Office Myah Lemos MD 785.1 Palpitations 785.2 Murmur Cardiac Undiagnosed 401.9 Hypertension Unspec 300.02 Anxiety Disorder Generalized Office Visit 08/28/2009 11:00a Main Office Myah Mcfarland 401.9 Hypertension Unspec MD [facility] 790.21 Impaired Fasting Glucose 733.00 Osteoporosis Unspec 268.9 Vitamin D Deficiency Unspec 786.2 Cough 311 Depressive Disorder Not Elsewhere Spec 530.81 Esophageal Reflux V06.1 Cdsgpgksyd-Hphqtyh-Hrmbuftc Combined (DTaP) Office Visit 08/01/2009 11:00a Main Office Myah Mcfarland 401.9 Hypertension Unspec MD [facility] 790.21 Impaired Fasting Glucose 733.00 Osteoporosis Unspec 785.2 Murmur Cardiac Undiagnosed 278.00 Obesity Unspec 311 Depressive Disorder Not Elsewhere Spec Office Visit 04/30/2009 1:00p Main Office Myah Mcfarland 733.00 Osteoporosis Unspec MD [facility] 268.9 Vitamin D Deficiency Unspec 790.21 Impaired Fasting Glucose 463 Tonsillitis Acute 401.9 Hypertension Unspec Office Visit 04/05/2009 4:00p Main Office Myah Mcfarland V70.0 Examination General MD [facility] Medical Routine AT [facility] 785.2 Murmur Cardiac Undiagnosed 401.9 Hypertension Unspec 278.00 Obesity Unspec 256.31 Premature Menopause Plan of Treatment 03/24/2019 - Myah Lemos, MDM54.17 Radiculopathy, lumbosacral regionNew Therapy:Comments:Treatment options with potential risks, general precautions, follow up recommendations, and alternative treatment options discussed with patient in detail. Patient verbalized understanding.M25.561 Pain in right kneeNew Therapy:Comments:PT recommended.I10 Essential (primary) wahmstwvwwoxC33.21 Adjustment disorder with depressed moodComments:Loss o .Counselled.No depression. Advised to contact me if she is not feeling any better.AllComments:May use Tylenol.
[2019-05-03 20:19] VITALS: BP 158/83
--- NOTE | 2019-05-03 20:37 | UC ---
Respiratory Complaint HPI - HPI Summary HPI Summary: 59-year-old woman comes in with a chief complaint of 3 weeks of bronchitis symptoms. Discussed cough chest congestion. Chest congestion is worse when she lays down at night. The cough improved somewhat iblk-sba-hbwqgfo medications but it continues to return. She is bringing up some sputum. No history of asthma. - History of Current Complaint Chief Complaint: UCRespiratory Stated Complaint: URI Time Seen by Provider: 05/03/19 20:22 Pain Intensity: 9 - Allergies/Home Medications Allergies/Adverse Reactions: Allergies Allergy/AdvReac Type Severity Reaction Status Date / Time No Known Allergies Allergy Verified 05/03/19 20:16 Home Medications: Home Medications Dextromethorphan Polistirex [Delsym] 30 mg PO Q12HR PRN 05/03/19 [History Confirmed 05/03/19] PMH/Surg Hx/FS Hx/Imm Hx Previously Healthy: Yes Cardiovascular History: Hypertension - Surgical History Surgical History: Yes Surgery Procedure, Year, and Place: 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 RIGHT UNDERARM - Family History Known Family History: Positive: Non-Contributory - Social History Alcohol Use: Rare Alcohol Amount: 1 Substance Use Type: None Smoking Status (MU): Never Smoked Tobacco Have You Smoked in the Last Year: No Review of Systems All Other Systems Reviewed And Are Negative: Yes Constitutional: Positive: Negative Skin: Positive: Negative Eyes: Positive: Negative ENT: Positive: Negative Respiratory: Positive: Cough, Other - see hpi Cardiovascular: Positive: Negative Gastrointestinal: Positive: Negative Motor: Positive: Negative Neurovascular: Positive: Negative Musculoskeletal: Positive: Negative Neurological: Positive: Negative Psychological: Positive: Negative Is Patient Immunocompromised?: No Physical Exam Triage Information Reviewed: Yes Appearance: Well-Appearing, No Pain Distress, Well-Nourished Vital Signs: Initial Vital Signs Temp 99.7 F 05/03/19 20:15 Pulse 93 05/03/19 20:15 Resp 18 05/03/19 20:15 BP 158/83 05/03/19 20:15 Pulse Ox 98 05/03/19 20:15 Vital Signs Reviewed: Yes Eye Exam: Normal Eyes: Positive: Conjunctiva Clear ENT: Positive: Pharynx normal, TMs normal Neck: Positive: Supple Respiratory: Positive: No respiratory distress, Rhonchi Cardiovascular: Positive: RRR Musculoskeletal Exam: Normal Musculoskeletal: Positive: Strength Intact, ROM Intact Neurological Exam: Normal Neurological: Positive: Alert, Muscle Tone Normal Psychological Exam: Normal Psychological: Positive: Age Appropriate Behavior Skin Exam: Normal Respiratory Course/Dx - Differential Dx/Diagnosis Provider Diagnosis: Bronchitis with bronchospasm Discharge - Sign-Out/Discharge Documenting (check all that apply): Patient Departure All imaging exams completed and their final reports reviewed: No Studies - Discharge Plan Condition: Stable Disposition: HOME Prescriptions: Albuterol HFA INHALER* [Ventolin HFA Inhaler*] 2 puff INH Q4H PRN #1 mdi PRN Reason: Wheezing Azithromyxin SYEDA (NF) [Z-Syeda (Zithromax) 250 mg tabs #6] 2 tab PO .TODAY, THEN 1 DAILY #6 tab Patient Education Materials: Acute Bronchitis (ED), Bronchospasm (ED) Referrals: Myah Lemos MD [Primary Care Provider] - Additional Instructions: FOLLOW UP WITH YOUR DOCTOR IF NOT COMPLETELY IMPROVED. GET RECHECKED SOONER IF YOUR CONDITION WORSENS OR ANY QUESTIONS OR CONCERNS. - Billing Disposition and Condition Condition: STABLE Disposition: Home
[2019-05-03] MEDS ORDERED: Azithromycin TAB* 250 MG PO ONE (20:56)
[2019-05-03] MEDS ORDERED: Albuterol HFA INHALER* 8 gm MDI INH ONE (20:56)
== END 2019-05-03 21:18 | disposition home or self-care (01) ==
LOC: UCEAST 19:49
DX: J20.9 Acute bronchitis, unspecified (principal); I10 Essential (primary) hypertension
CPT/HCPCS: 99212; A9270-GY; G0463